=== PATIENT | male | born 1955 | race Caucasian/White ===

== ENCOUNTER → 2016-07-25 | Outpatient (CLI) | payer OTHER | END | disposition home or self-care (01) | LOC: RAD 11:02 | PROVIDERS: ATTEND Family Medicine | DX: J90 Pleural effusion, not elsewhere classified (principal); J98.11 Atelectasis | CPT/HCPCS: 71010 ==

== ENCOUNTER 2018-09-03 11:26 | Observation (INO) | payer OTHER ==
[~2018-09-03] VITALS: Ht 182.9 cm; Wt 84.5 kg
[2018-09-03 12:43] VITALS: BP 176/102
[2018-09-03] MEDS ORDERED: CALC0.25 PO (12:49)
[2018-09-03] MEDS ORDERED: CLOP75TA PO (12:49)
[2018-09-03] MEDS ORDERED: NEBI5TAB2 PO (12:49)
[2018-09-03] MEDS ORDERED: ASPI-496 PO (12:49)
[2018-09-03] MEDS ORDERED: LISI5TAB7 PO (12:49)
[2018-09-03] MEDS ORDERED: PANT40TA5 PO (12:49)
[2018-09-03] MEDS ORDERED: ERGO500017 PO (12:49)
[2018-09-03] MEDS ORDERED: ATOR40TA PO (12:49)
[2018-09-03 13:01] LABS: BASOPHILS # (AUTO) 0.04 x10^3/uL (0-0.1); BASOPHILS % (AUTO) 1 % (0-1); EOSINOPHILS # (AUTO) 0.26 x10^3/uL (0-0.4); EOSINOPHILS % (AUTO) 4 % (1-7); LYMPHOCYTES # (AUTO) 1.52 x10^3/uL (1-3.4); LYMPHOCYTES % (AUTO) 21 % (22-44); MD NO; MEAN CORPUSCULAR HEMOGLOBIN 31.8 pg (27.5-34.5); MEAN CORPUSCULAR HGB CONC 32.9 g/dL (33.2-36.2); MEAN CORPUSCULAR VOLUME 96.8 fL (81-97); MEAN PLATELET VOLUME 7.8 fL (7.4-10.4); MONOCYTES % (AUTO) 8 % (2-9); NEUTROPHILS # (AUTO) 4.76 x10^3/uL (1.8-6.8); NEUTROPHILS % (AUTO) 66 % (42-75); PLATELET COUNT 253 x10^3/uL (130-400); RED BLOOD COUNT 3.15 x10^6/uL (4.38-5.82); RED CELL DISTRIBUTION WIDTH 13.3 % (9.4-14.8)
[2018-09-03 13:10] LABS: ALANINE AMINOTRANSFERASE 30 U/L (12-78); ALBUMIN 3.5 g/dL (3.4-5.0); ANION GAP 8 mmol/L (5-15); CALCIUM 9.3 mg/dL (8.5-10.1); CHLORIDE 100 mmol/L (98-107); CREATININE 8.56 mg/dL (0.7-1.3)
[2018-09-03 13:12] LABS: ALKALINE PHOSPHATASE 90 U/L (45-117); BILIRUBIN,TOTAL 0.5 mg/dL (0.2-1.0); TOTAL PROTEIN 7.8 g/dL (6.4-8.2)
[2018-09-03 13:16] LABS: INTERNATIONAL NORMALIZED RATIO 1.06 (0.93-1.1); PROTHROMBIN TIME 11.1 Seconds (9.6-11.5)
[2018-09-03] MEDS ORDERED: MIDAZOLAM 1 MG/ML, 5ML ONE (14:23)
[2018-09-03] MEDS ORDERED: TICAGRELOR 90 MG TABLET ONE (14:23)
[2018-09-03] MEDS ORDERED: FENTANYL PF 100 MCG/2ML ONE (14:23)
[2018-09-03] MEDS ORDERED: VERAPAMIL 2.5 MG/ML, 2ML ONE (14:23)
[2018-09-03] MEDS ORDERED: BIVALIRUDIN 250 MG ONE (14:24)
[2018-09-03] MEDS ORDERED: LIDOCAINE-MPF 1%, 5ML ONE (14:24)
[2018-09-03] MEDS ORDERED: CLOPIDOGREL 300 MG TABLET ONE ×2 (14:25→17:51)
[2018-09-03] MEDS ORDERED: hydrALAzine 20 MG/ML, 1ML ONE (14:55)
[2018-09-03] MEDS ORDERED: HEPARIN 1,000 UNITS/ML, 10ML ONE (14:58)
[2018-09-03] MEDS ORDERED: MAALOX/HYOSCYAMINE/LIDOCAINE 45 ML BTL PO ONE (19:00)
[2018-09-03] MEDS ORDERED: ACETAMINOPHEN 325 MG TABLET PO PRN (20:00)
[2018-09-03] MEDS ORDERED: ONDANSETRON 2MG/ML, 2ML IV PRN (20:00)
[2018-09-03 21:00] VITALS: BP 159/82
[2018-09-03] MEDS ORDERED: ATORVASTATIN 40 MG TABLET PO SCH (21:00)
[2018-09-03 22:02] VITALS: BP 157/84
[2018-09-03] MEDS: LISINOPRIL 10 MG TABLET PO SCH (22:03)
[2018-09-04 01:39] VITALS: BP 150/84
[2018-09-04 05:12] VITALS: BP 158/87
[2018-09-04 05:17] LABS: BASOPHILS # (AUTO) 0.04 x10^3/uL (0-0.1); BASOPHILS % (AUTO) 1 % (0-1); EOSINOPHILS # (AUTO) 0.19 x10^3/uL (0-0.4); EOSINOPHILS % (AUTO) 3 % (1-7); LYMPHOCYTES # (AUTO) 1.41 x10^3/uL (1-3.4); LYMPHOCYTES % (AUTO) 22 % (22-44); MD NO; MEAN CORPUSCULAR HEMOGLOBIN 33.1 pg (27.5-34.5); MEAN CORPUSCULAR HGB CONC 33.6 g/dL (33.2-36.2); MEAN CORPUSCULAR VOLUME 98.6 fL (81-97); MEAN PLATELET VOLUME 7.8 fL (7.4-10.4); MONOCYTES # (AUTO) 0.54 x10^3/uL (0.2-0.8); MONOCYTES % (AUTO) 9 % (2-9); NEUTROPHILS # (AUTO) 4.11 x10^3/uL (1.8-6.8); NEUTROPHILS % (AUTO) 65 % (42-75); PLATELET COUNT 230 x10^3/uL (130-400); RED BLOOD COUNT 3.01 x10^6/uL (4.38-5.82); RED CELL DISTRIBUTION WIDTH 13.8 % (9.4-14.8)
[2018-09-04 05:33] LABS: ANION GAP 8 mmol/L (5-15); CALCIUM 8.8 mg/dL (8.5-10.1); CHLORIDE 101 mmol/L (98-107); CREATININE 9.02 mg/dL (0.7-1.3)
[2018-09-04] MEDS ORDERED: ASPIRIN 81 MG TABLET EC PO SCH (06:00)
[2018-09-04] MEDS ORDERED: NEBIVOLOL HCL 5 MG TABLET PO SCH (06:00)
[2018-09-04 07:12] VITALS: BP 157/81
[2018-09-04] MEDS: LISINOPRIL 10 MG TABLET PO SCH (08:01)
[2018-09-04] MEDS ORDERED: CLOPIDOGREL 75 MG TABLET PO SCH (09:00)
== END 2018-09-04 09:30 | disposition home or self-care (01) ==
LOC: CACL 11:26 → 5SO 18:21 → CACL 18:47 → 5SO 18:47 → DCLOUNGE 09-04 09:18
PROVIDERS: ADMIT Internal Medicine Interventional Cardiology; ATTEND Internal Medicine Interventional Cardiology
DX: I25.10 Atherosclerotic heart disease of native coronary artery without angina pectoris (principal); I12.0 Hypertensive chronic kidney disease with stage 5 chronic kidney disease or end stage renal disease; N18.6 End stage renal disease; K21.9 Gastro-esophageal reflux disease without esophagitis; F41.9 Anxiety disorder, unspecified; E78.5 Hyperlipidemia, unspecified; R53.83 Other fatigue; E66.9 Obesity, unspecified; Z68.25 Body mass index [BMI] 25.0-25.9, adult; Z79.899 Other long term (current) drug therapy; Z79.82 Long term (current) use of aspirin; Z88.5 Allergy status to narcotic agent
CPT/HCPCS: 36415; 80048; 80053; 85025; 85610; 85730; 93005; 93454; 93571; 99156; 99157; C1725; C1769; C1874; C1887; C1894; C9600; C9601; G0378; J0360; J0583; J1644; J2250; J3010; Q9967